=== PATIENT | male | born 1975 | race Caucasian/White ===

== ENCOUNTER → 2018-02-15 14:21 | Outpatient (CLI) | payer BC, SELFPAY ==
--- NOTE | 2018-02-15 14:21 | DT_ITS ---
This patient was seen during an EMR downtime February 12, 2018 - February 19, 2018. This patient may have a combination of paper and electronic documentation or all paper documentation. All documentation is viewable within the e-chart portion of [facility] for each patient visit.
--- NOTE | 2018-02-28 15:57 | STRESSREP ---
Stress Test Report Treadmill EKG report: Resting EKG: Normal sinus rhythm, normal axis, no evidence of previous myocardial infarction. Treadmill EKG: The patient exercise according to a Curt protocol for 10 minutes and 30 seconds achieving a workload of 13.4 0 METS. Resting heart rate was initially 52 beats a minute and nhung to maximum 1 71 bpm which represents 96% of the maximal age-predicted heart rate. Resting blood pressure is 126/86 and nhung to maximum of 202/60. Test was terminated due to the attainment of target heart rate and leg fatigue. During exercise the patient's heart rate increased as expected. The patient had no dynamic EKG changes to suggest ischemia. No arrhythmias noted. Conclusions normal, adequate treadmill EKG. Negative for ischemia by EKG criteria. No anginal symptoms noted. No arrhythmias noted. Hypertensive blood pressure response exercise. Average exercise capacity for age. No complications.
--- NOTE | 2018-02-28 16:02 | STRESSREP_ITS ---
Stress Test Report Treadmill EKG report: Resting EKG: Normal sinus rhythm, normal axis, no evidence of previous myocardial infarction. Treadmill EKG: The patient exercise according to a Curt protocol for 10 minutes and 30 seconds achieving a workload of 13.4 0 METS. Resting heart rate was initially 52 beats a minute and nhung to maximum 1 71 bpm which represents 96 % of the maximal age-predicted heart rate. Resting blood pressure is 126/86 and nhung to maximum of 202/60. Test was terminated due to the attainment of target heart rate and leg fatigue. During exercise the patient's heart rate increased as expected. The patient had no dynamic EKG changes to suggest ischemia. No arrhythmias noted. Conclusions normal, adequate treadmill EKG. Negative for ischemia by EKG criteria. No anginal symptoms noted. No arrhythmias noted. Hypertensive blood pressure response exercise. Average exercise capacity for age. No complications.
== END ==
PROVIDERS: Family Provider Student in an Organized Health Care Education/Training Program; PCP Student in an Organized Health Care Education/Training Program; Visit Provider Student in an Organized Health Care Education/Training Program
DX: R06.02 Shortness of breath (principal); E78.2 Mixed hyperlipidemia
CPT/HCPCS: 93017

== ENCOUNTER → 2020-08-04 | Outpatient (CLI) | payer BC, SELFPAY ==
[2020-08-04 11:16] LABS: Bacteria 0 SEEN /hpf (None Seen); Mucous, Urine 0 SEEN /hpf (<or=2+); Red Blood Cells-Urine 0 SEEN /hpf (0-5); Squamous Epithelial Cells - UA 0 SEEN /hpf (0-5); White Blood Cells 0 SEEN /hpf (0-5)
[2020-08-04 11:21] LABS: Absolute Lymphocyte Count 1.82 X10^3/uL (0.83-4.51); Absolute Neutrophil Count 4.1 X10^3/uL (2.0-7.7); Basophil# 0.04 X10^3/uL; Basophil% 0.6 % (0-1); Eosinophil# 0.11 X10^3/uL; Eosinophils% 1.7 % (0-5); Hematocrit 46.1 % (40-54); Hemoglobin 14.7 g/dL (13.0-16.5); Lymphocyte # 1.82 X10^3/ul (4.0); Mean Corp Hgb Conc 31.9 g/dL (32-36); Mean Corpuscular Hgb 28.7 pg (27.0-32.0); Mean Platelet Vol. 10.7 fl (6.2-12.0); Monocyte% 6.2 % (0-10); NRBC Flagged by Analyzer 0 % (0-5); Neutrophil # 4.09 X10^3/uL (2.7-7.7); Platelet Count 326 K/mm3 (150-450); RBC Distribution Width CV 12.4 % (11.6-14.6); RBC Distribution Width SD 40.6 fl (35.1-43.9); Red Blood Count 5.12 M/mm3 (4.6-6.2); White Blood Count 6.5 K/mm3 (4.4-11.0)
[2020-08-04 11:24] LABS: Color, Urine Straw (Yellow); Glucose, Dipstick Normal (Normal); Ketone-Dipstick Negative (Negative); Leukocyte Esterase-Dipstick Negative /ul (Negative); Nitrite-Dipstick Negative (Negative); Occult Blood-Urine Negative /ul (Negative); Protein-Dipstick Negative (Negative); Specific Gravity, Urine 1.005 (1.002-1.030); Urine Bilirubin Dipstick Negative (Negative); Urine Clarity Clear (Clear); Urine Urobilinogen Normal (Normal)
[2020-08-04 11:35] LABS: Vitamin D,25 Hydroxy 30.1 ng/mL
[2020-08-04 11:41] LABS: AST(SGOT) 15 U/L (15-37); Alanine Aminotransfer ALT/SGPT 30 U/L (16-61); Alkaline Phosphatase 98 U/L (45-117); Anion Gap 3 (5-15); BUN 12 mg/dL (7-18); BUN/Creat Ratio 12.7 RATIO (10-20); Calcium,Total 9.1 mg/dL (8.5-10.1); Chloride 105 mmol/L (98-107); Cholesterol 221 mg/dL (200); Creatinine, Serum 0.95 mg/dL (0.70-1.30); EST Glomerular Filtration Rate 92 mL/min (>60); Est Glom Filt Rate - Afr Amer 111 mL/min (>60); Globulin 4.2 g/dL (2.2-4.2); Glucose 84 mg/dL (74-106); High Density Lipoprotein 40 mg/dL; Potassium 4.2 mmol/L (3.5-5.1); Protein, Total 8.2 g/dL (6.4-8.2); Sodium Level 138 mmol/L (136-145); Thyroid Stim Hormone (TSH) 1.98 uIU/mL (0.358-3.74); Triglycerides 189 mg/dL; Very Low Density Lipoprotein 38 mg/dL (5-40)
[2020-08-04 11:46] LABS: Hemoglobin A1c 5.5 % (3.8-5.6)
[2020-08-07 17:36] LABS: Vitamin B12 411 pg/mL (211-911)
== END | disposition home or self-care (01) ==
LOC: LABSPEC 11:00
PROVIDERS: PCP Student in an Organized Health Care Education/Training Program; Referring Provider Student in an Organized Health Care Education/Training Program; Visit Provider Student in an Organized Health Care Education/Training Program
DX: Z00.00 Encounter for general adult medical examination without abnormal findings (principal); K50.919 Crohn's disease, unspecified, with unspecified complications; E78.5 Hyperlipidemia, unspecified
CPT/HCPCS: 80053; 80061; 81001; 82306; 82607; 83036; 84443; 85025

== ENCOUNTER → 2021-06-02 | Outpatient (CLI) | payer OTHER, SELFPAY ==
[2021-06-02 09:50] LABS: Absolute Lymphocyte Count 1.76 X10^3/uL (0.83-4.51); Absolute Neutrophil Count 3.6 X10^3/uL (2.0-7.7); Basophil# 0.03 X10^3/uL; Basophil% 0.5 % (0-1); Eosinophil# 0.11 X10^3/uL; Eosinophils% 1.9 % (0-5); Hematocrit 44.7 % (40-54); Hemoglobin 14.6 g/dL (13.0-16.5); Lymphocyte # 1.76 X10^3/ul (0.83-4.51); Lymphocyte % 29.6 % (19-41); Mean Corp Hgb Conc 32.7 g/dL (32-36); Mean Corpuscular Hgb 28.8 pg (27.0-32.0); Mean Corpuscular Volume 88.2 fL (80-94); Mean Platelet Vol. 10.2 fl (6.2-12.0); Monocyte% 6.7 % (0-10); NRBC Flagged by Analyzer 0 % (0-5); Neutrophil # 3.63 X10^3/uL (2.7-7.7); Neutrophil % 61.1 % (47-70); Platelet Count 392 K/mm3 (150-450); RBC Distribution Width CV 12.5 % (11.6-14.6); RBC Distribution Width SD 40.6 fl (35.1-43.9); Red Blood Count 5.07 M/mm3 (4.6-6.2); White Blood Count 5.9 K/mm3 (4.4-11.0)
[2021-06-02 10:07] LABS: Hemoglobin A1c 5.5 % (3.8-5.6)
[2021-06-02 10:12] LABS: ALB/GLOB Ratio 0.8 RATIO (0.9-2.4); AST(SGOT) 23 U/L (15-37); Alanine Aminotransfer ALT/SGPT 40 U/L (16-61); Albumin, Serum 3.8 g/dL (3.2-5.0); Alkaline Phosphatase 100 U/L (45-117); Anion Gap 4 (5-15); BUN 12 mg/dL (7-18); BUN/Creat Ratio 14.3 RATIO (10-20); Calcium,Total 9.2 mg/dL (8.5-10.1); Chloride 106 mmol/L (98-107); Cholesterol 200 mg/dL (200); Creatinine, Serum 0.84 mg/dL (0.70-1.30); EST Glomerular Filtration Rate 105 mL/min (>60); Est Glom Filt Rate - Afr Amer 126 mL/min (>60); Globulin 4.6 g/dL (2.2-4.2); Glucose 88 mg/dL (74-106); High Density Lipoprotein 38 mg/dL; Potassium 4.1 mmol/L (3.5-5.1); Protein, Total 8.4 g/dL (6.4-8.2); Sodium Level 138 mmol/L (136-145); Thyroid Stim Hormone (TSH) 2.07 uIU/mL (0.358-3.74); Triglycerides 128 mg/dL; Very Low Density Lipoprotein 26 mg/dL (5-40)
== END | disposition home or self-care (01) ==
LOC: LABSPEC 06-09 10:31
PROVIDERS: PCP Student in an Organized Health Care Education/Training Program; Visit Provider Student in an Organized Health Care Education/Training Program
DX: Z00.00 Encounter for general adult medical examination without abnormal findings (principal); E78.5 Hyperlipidemia, unspecified
CPT/HCPCS: 80053; 80061; 83036; 84443; 85025

== ENCOUNTER → 2023-01-27 | Outpatient (CLI) | payer BC, SELFPAY ==
--- NOTE | 2023-01-27 12:21 | ECHOD_ITS ---
Reason For Study: DYSLIPIDEMIA Procedure This was a 2D Doppler, Color Flow transthoracic echocardiogram. Exam performed in department. Left Ventricle Normal LV size. Left ventricular systolic function is normal. The estimated ejection fraction is 60 %. No regional wall motion abnormalities noted. Right Ventricle Normal RV size. Normal systolic function. Atria Normal left atrium. Normal right atrium. Mitral Valve Normal mitral valve. Tricuspid Valve Normal tricuspid valve. Aortic Valve Normal aortic valve. Pulmonic Valve Normal pulmonic valve. Great Vessels Normal aortic root. The pulmonary artery is normal size. Normal inferior vena cava. Pericardium/Pleural No pericardial effusion. MMode/2D Measurements & Calculations LVIDd: 4.6 cm IVSd: 0.99 cm Ao root diam: 3.0 cm LVIDs: 2.8 cm LVPWd: 1.0 cm RVDd: 3.5 cm FS: 38.4 % LAV(MOD-bp): 45.8 ml LVAd ap4: 31.9 cm2 LVAd ap2: 30.0 cm2 LAV(MOD-bp) Indexed: 20.7 ml/m2 LVLd ap4: 8.1 cm LVLd ap2: 8.4 cm LAV(MOD-sp2): 46.1 ml EDV(MOD-sp4): 106.4 ml EDV(MOD-sp2): 92.1 ml LAV(MOD-sp4): 46.1 ml EDV(sp4-el): 106.1 ml EDV(sp2-el): 90.7 ml LVAs ap4: 18.6 cm2 LVAs ap2: 16.4 cm2 LVLs ap4: 7.0 cm LVLs ap2: 6.3 cm ESV(MOD-sp4): 42.4 ml ESV(MOD-sp2): 36.7 ml ESV(sp4-el): 42.1 ml ESV(sp2-el): 36.2 ml EF(MOD-sp4): 60.2 % EF(MOD-sp2): 60.2 % EF(sp4-el): 60.3 % SV(MOD-sp4): 64.0 ml SV(MOD-sp2): 55.4 ml SV(sp4-el): 64.0 ml LA dimension(2D): 3.7 cm LA A4 area: 17.9 cm2 RA A4 area: 15.9 cm2 Time Measurements MV dec time: 0.22 sec Doppler Measurements & Calculations MV E max jonathan: 68.4 cm/sec Lat Peak E' Jonathan: 11.9 cm/sec Med Peak E' Jonathan: 12.8 cm/sec MV A max jonathan: 53.1 cm/sec E/E' lat: 5.7 E/E' med: 5.3 MV E/A: 1.3 MV dec slope: 321.5 cm/sec2 Ao V2 max: 130.0 cm/sec LV V1 max: 108.7 cm/sec Ao max P.8 mmHg LV V1 max P.8 mmHg Ao V2 mean: 89.4 cm/sec LV V1 mean P.4 mmHg Ao mean P.7 mmHg LV V1 mean: 71.1 cm/sec Ao V2 VTI: 25.8 cm LV V1 VTI: 20.9 cm AV (velocity ratio): 0.81 PA V2 max: 145.8 cm/sec PA V2 mean: 103.9 cm/sec ECHO/Echo Complete Interpretation Summary Normal LV size. Left ventricular systolic function is normal. The estimated ejection fraction is 60 %. Structurally normal valves. Ordering Physician: Jesus Medina Referring Physician: Jesus Medina Performed By: Dania Machado, LORECS, RVT
--- NOTE | 2023-01-27 16:19 | STRESSREP_ITS ---
Stress Test Report Exercise stress test. 47-year-old male with a history of coronary artery risk factors Stress protocol: Resting EKG demonstrates normal sinus rhythm with a rate of 63 bpm resting blood pressure is 124/86 mmHg. The patient exercised according to the regular Curt protocol for a total duration of 10 minutes attaining a maximum heart rate of 162 bpm which was 93% of maximum predicted heart rate; the maximum workload was 13.4 metabolic equivalents. At rest there were no ST or T wave changes noted to suggest ischemia and at peak exercise upsloping ST changes only were noted which did not meet the criteria for ischemia. No clinical angina was noted the test was terminated due to the target heart rate being achieved/fatigue. The peak b lood pressure was 184/72 mmHg. Rate-pressure product was 29,400. Conclusion: Stress test with no EKG criteria or chest pain noted at a high workload
== END | disposition home or self-care (01) ==
LOC: CVS 12:19
PROVIDERS: PCP Student in an Organized Health Care Education/Training Program; Referring Provider Student in an Organized Health Care Education/Training Program; Visit Provider Student in an Organized Health Care Education/Training Program
DX: Z13.6 Encounter for screening for cardiovascular disorders (principal); K50.919 Crohn's disease, unspecified, with unspecified complications; E78.5 Hyperlipidemia, unspecified
CPT/HCPCS: 93017; 93306